=== PATIENT | female | born 1965 | race African-American/Black ===

== ENCOUNTER 2017-05-15 20:35 | Emergency (ER) | payer MEDICAID ==
[~2017-05-15] VITALS: Ht 157.5 cm; Wt 68.0 kg
[2017-05-15 20:35] VITALS: BP 159/71
[~2017-05-15 20:35] MED LIST: ASPI81CH43 PO; Atorvastatin Calcium PO; CLOP75TA28 PO; INSLANTI SC; ISOS10TA14 PO; LIS10T PO; NICO14DI9 TD; NITR0.4S29 SL
== END 2017-05-15 21:45 | disposition left against medical advice (07) ==
LOC: EDBD 20:35 → ER 20:42
DX: R09.89 Other specified symptoms and signs involving the circulatory and respiratory systems (principal); Z53.21 Procedure and treatment not carried out due to patient leaving prior to being seen by health care provider

== ENCOUNTER 2018-06-11 11:38 | Inpatient (IN) | payer MEDICAID ==
[~2018-06-11] VITALS: Ht 157.5 cm; Wt 70.5 kg
[2018-06-11] MEDS ORDERED: SODIUM CHLORIDE 0.9% 1,000 ML IV ONE (11:56)
[2018-06-11] MEDS ORDERED: MORPHINE SULFATE 4 MG/ML SYR/VIAL IV ONE (12:30)
[2018-06-11] MEDS ORDERED: ONDANSETRON HCL 4 MG/2 ML VIAL IV ONE (12:30)
[2018-06-11 13:05] LABS: Basophils # (auto) 0.1 uL; Basophils % (auto) 0.8 % (0.0-2.0); Eosinophils # (auto) 0 uL; Eosinophils % (auto) 0.2 % (0.0-7.0); Hematocrit 45.1 % (36.0-46.0); Hemoglobin 15.2 g/dL (12.2-16.2); Lymphocytes # (auto) 1.6 uL; Lymphocytes % (auto) 14.2 % (10.0-50.0); Mean Corpuscular Hemoglobin 28.7 pg (28.0-32.0); Mean Corpuscular Hgb Conc. 33.6 g/dL (32.0-36.0); Mean Corpuscular Volume 85.5 fL (80.0-100.0); Monocytes # (auto) 0.6 uL; Monocytes % (auto) 5.3 % (0.0-12.0); Neutrophils # (auto) 8.9 uL; Neutrophils % (auto) 79.5 % (37.0-80.0); Nucleated Red Blood Cells % 0.1 %; Platelet Count (auto) 406 10^3/uL (140-450); Red Blood Cells 5.28 10^6/uL (4.0-5.20); Red Cell Distribution Width 13.6 % (11.8-14.3); White Blood Cell 11.2 10^3/uL (4.4-10.8)
[2018-06-11 13:20] LABS: INR 0.89 (0.9-1.15); Partial Thromboplastin Time 25.1 sec (23.78-33.04); Prothrombin Time 9.6 sec (9.27-12.13)
[2018-06-11 13:26] LABS: Albumin 3.8 g/dL (3.4-5.0); BUN/Creatinine Ratio 6.4; Calcium 9.4 mg/dL (8.5-10.1); Magnesium 2.3 mg/dL (1.6-2.6)
[2018-06-11 13:42] LABS: Potassium 2.9 mmol/L (3.5-5.1)
[2018-06-11 13:48] LABS: Bilirubin, Total 0.4 mg/dL (0.2-1.0); Total Protein 8.5 g/dL (6.4-8.2)
[2018-06-11] MEDS ORDERED: POTASSIUM CHL 20MEQ/100ML 100 ML IV ONE (14:00)
[2018-06-11] MEDS ORDERED: METOPROLOL SUCCINATE XL 50 MG TAB PO ONE (14:45)
[2018-06-11] MEDS ORDERED: MORPHINE SULF INJ 2 MG/ML SYRINGE 1ML IV PRN (15:00)
[2018-06-11] MEDS ORDERED: LORazepam 0.5 MG TAB PO PRN (15:00)
[2018-06-11] MEDS ORDERED: NITROGLYCERIN 0.4 MG SL TAB SL PRN (15:00)
[2018-06-11] MEDS ORDERED: TEMAZEPAM 15 MG CAP PO PRN (15:00)
[2018-06-11] MEDS ORDERED: MORPHINE SULFATE 4 MG/ML SYR/VIAL IV PRN (15:00)
[2018-06-11] MEDS ORDERED: DEXTROSE (50%) 50ML SYRG IV PRN (15:00)
[2018-06-11] MEDS ORDERED: ACETAMINOPHEN 500 MG TAB PO PRN (15:00)
[2018-06-11] MEDS: SOD CHL 0.9%/ KCL 40MEQ 1,000 ML IV SCH (15:28)
[2018-06-11] MEDS ORDERED: ENOXAPARIN SOD 100 MG/1 ML SYRINGE SC ONE (17:05)
[2018-06-11] MEDS ORDERED: ENOXAPARIN SOD 80 MG/0.8ML SYRINGE SC ONE (17:15)
[2018-06-11] MEDS ORDERED: CLOPIDOGREL BISULFATE 75 MG TAB PO ONE (17:15)
[2018-06-11] MEDS: InsuLIN REG 1unit/0.01ml Soln (100units/ml) SC SCH ×2 (17:24→22:36)
[2018-06-11] MEDS: ACCU-CHEK COMFORT CURVE STRIP VI SCH ×2 (17:25→22:35)
[2018-06-11 18:10] VITALS: BP 104/76
--- NOTE | 2018-06-11 19:45 | NUR ---
Opening Shift Note Assumed care of patient, lying on bed in high [place], eating independently slowly, alternating with sleeping due to Morphine from ER. Breathing even and nonlabored, on RA breathing, No S/S of distress/SOB. C/O chest pain 08/07, refused morphine for now, wanted to try eating more. 20G on right FA infusing IV at 75ml/hr. 20G saline lock at left FA, flushed well, CDI site. Due to void. Bed in low position, call light within reach, all alarms are audible, fall and safety precaution in place. Instructed on POC and to call for assist PRN, will continue to monitor for changes Q1hr and PRN.
[2018-06-11] MEDS: PROMETHAZINE HCL 25 MG/ML 1ML IV PRN (19:53)
[2018-06-11 20:00] VITALS: BP 116/67
--- NOTE | 2018-06-11 21:12 | NUR ---
Family at bedside. Pt's DTR, significant other and friend. All questions and concerns answered, instruct POC and acknowledged by the family.
[2018-06-11] MEDS: ENOXAPARIN SOD 80 MG/0.8ML SYRINGE SC SCH ×2 (22:00→22:35)
--- NOTE | 2018-06-11 22:45 | NUR ---
Pharmacy/ Lovenox Called and consulted with Pharmacist chip person regarding Lovenox and Plavix already given, Pt has a LHC plan tomorrow and Lovonox schedule at 10pm. Pharmacist will put in note to re-time Lovenox.
--- NOTE | 2018-06-11 22:50 | NUR ---
Stomach upset Pt moaning and c/o stomach upset. [facility] Hospitalist. Addendum: 06/11/18 at 2312 by Joanne Spears RN 22.58pm Tra EDUCATION COORDINATOR called back. Pt's condition and plan notified, including increased Trop at 44.5 and [facility] plan tomorrow. New order received, see ABIDAR.
[2018-06-11] MEDS ORDERED: PANTOPRAZOLE 40 MG/10 ML VIAL IV ONE (23:00)
[2018-06-12] VITALS (8 sets, daily range): BP systolic 97–128; BP diastolic 67–75
--- NOTE | 2018-06-12 01:00 | NUR ---
Condition update Pt's condition stable, sleeping on bed, no pain or moaning. Continue care.
[2018-06-12] MEDS: SOD CHL 0.9%/ KCL 40MEQ 1,000 ML IV SCH ×2 (01:28→04:19)
--- NOTE | 2018-06-12 04:11 | NUR ---
Family called to ask for Pt's condition. Pt's condition and v/s stable, sleeping well, no chest pain. Family updated. Continue care.
--- NOTE | 2018-06-12 04:20 | NUR ---
RENEG 12 leads obtained. Addendum: 06/12/18 at 0732 by Joanne Spears RN for f/u per ordered.
--- NOTE | 2018-06-12 04:45 | NUR ---
Elimination/ OOB Pt walked to the restroom for urination with minimal assist with wires, stable gait. Pt passed urine, collected for UA and wiped clean by self. Pt walked back with no incident.
--- NOTE | 2018-06-12 05:00 | NUR ---
Patient bathe/linen change Patient given complete bath with CHG wipes. Skin integrity assessed for any changes, no open skin, z-guard applied to sommer area and both lower legs. Complete linens changed. Patient repositioned for comfort.
[2018-06-12 06:03] LABS: Basophils # (auto) 0 uL; Basophils % (auto) 0.7 % (0.0-2.0); Eosinophils # (auto) 0.1 uL; Eosinophils % (auto) 1.4 % (0.0-7.0); Hematocrit 38.3 % (36.0-46.0); Hemoglobin 13.2 g/dL (12.2-16.2); Lymphocytes # (auto) 2.4 uL; Lymphocytes % (auto) 40.7 % (10.0-50.0); Mean Corpuscular Hemoglobin 29.6 pg (28.0-32.0); Mean Corpuscular Hgb Conc. 34.5 g/dL (32.0-36.0); Mean Corpuscular Volume 85.7 fL (80.0-100.0); Monocytes # (auto) 0.5 uL; Monocytes % (auto) 8.3 % (0.0-12.0); Neutrophils # (auto) 2.9 uL; Neutrophils % (auto) 48.9 % (37.0-80.0); Nucleated Red Blood Cells % 0.1 %; Platelet Count (auto) 367 10^3/uL (140-450); Red Blood Cells 4.47 10^6/uL (4.0-5.20); Red Cell Distribution Width 13.4 % (11.8-14.3); White Blood Cell 5.9 10^3/uL (4.4-10.8)
[2018-06-12 06:22] LABS: Albumin 2.9 g/dL (3.4-5.0); Calcium 8.5 mg/dL (8.5-10.1); Potassium 3.7 mmol/L (3.5-5.1)
[2018-06-12 06:24] LABS: BUN/Creatinine Ratio 14.3
[2018-06-12 06:26] LABS: Bilirubin, Total 0.3 mg/dL (0.2-1.0); Total Protein 6.7 g/dL (6.4-8.2)
[2018-06-12 06:27] LABS: Alcohol, Urine < 3.0 mg/dL (0-5); Amphetamine Screen, Urine NEGATIVE (NEGATIVE); Barbiturate Scree,Urine NEGATIVE (NEGATIVE); Phencyclidine Screen, Urine NEGATIVE (NEGATIVE)
[2018-06-12] MEDS: InsuLIN REG 1unit/0.01ml Soln (100units/ml) SC SCH ×4 (07:00→21:54)
[2018-06-12 07:23] LABS: Benzodiazephine Screen, Urine NEGATIVE (NEGATIVE); Cannabinoid Screen, Urine NEGATIVE (NEGATIVE); Cocaine Screen, Urine NEGATIVE (NEGATIVE); Opiate Scree,Urine POSITIVE (NEGATIVE)
[2018-06-12] MEDS: ACCU-CHEK COMFORT CURVE STRIP VI SCH ×4 (07:30→21:54)
[2018-06-12] MEDS: traMADol HCL 50 MG TAB PO PRN (07:57)
[2018-06-12] MEDS: ENOXAPARIN SOD 80 MG/0.8ML SYRINGE SC SCH ×2 (09:00→16:28)
--- NOTE | 2018-06-12 09:11 | NUR ---
PATIENT TAKEN TO VIAL GAUGER FOR LEFT HEART CATH.
--- NOTE | 2018-06-12 09:30 | NUR ---
Pt off the floor in Corrections Officer. Will reassess when pt available.
[2018-06-12] MEDS ORDERED: IOHEXOL 350 MG/ML 100ML IJ ONE (09:40)
[2018-06-12] MEDS ORDERED: LIDOCAINE 2%HCL (LOCAL ANESTH.) INJ 20ML MDV ONE ×2 (09:40→12:03)
[2018-06-12] MEDS: ASPirin 81 mg TAB PO SCH (10:00)
[2018-06-12] MEDS ORDERED: NITROGLYCERIN 0.2MG/HR TOPICAL PATCH TD ONE (10:00)
[2018-06-12] MEDS ORDERED: CLOPIDOGREL BISULFATE 75 MG TAB PO ONE (10:00)
[2018-06-12] MEDS ORDERED: METOPROLOL SUCCINATE XL 50 MG TAB PO ONE (10:00)
[2018-06-12] MEDS: PANTOPRAZOLE 40 MG TAB PO SCH (10:00)
[2018-06-12] MEDS: NITROGLYCERIN 0.2MG/HR TOPICAL PATCH TD SCH (10:00)
[2018-06-12] MEDS ORDERED: ANGIOMAX 250 MG VIAL IV ONE ×3 (10:08→14:00)
[2018-06-12] MEDS ORDERED: fentaNYL CITRATE 100 MCG/2 ML VL ONE ×2 (10:08→13:00)
[2018-06-12] MEDS ORDERED: MIDAZOLAM HCL 1MG/1ML-2 ML VIAL ONE ×3 (10:09→14:26)
[2018-06-12] MEDS ORDERED: SODIUM CHL 0.9% 0 ML ONE (10:09)
[2018-06-12] MEDS ORDERED: IODIXANOL 320MG/ML 100ML BTL IV ONE ×3 (12:03→14:32)
[2018-06-12] MEDS ORDERED: diphenhdrAMINE HCL 50 MG/1 ML VL ONE (13:00)
[2018-06-12] MEDS ORDERED: SODIUM CHL 0.9% 50 ML ONE ×2 (13:01→14:01)
[2018-06-12] MEDS ORDERED: EPINEPHrine HCL 1 MG/10 ML SYRG ONE (13:21)
[2018-06-12] MEDS ORDERED: NITROGLYCERIN 5MG/ML 10ML VIAL IV ONE (13:21)
[2018-06-12] MEDS ORDERED: ATROPINE SULFATE 1 MG/1 ML VIAL ONE (13:21)
[2018-06-12] MEDS ORDERED: CLOPIDOGREL 300 MG TAB ONE (13:22)
[2018-06-12] MEDS ORDERED: METOPROLOL TARTRATE 1MG/1ML-5ML VIAL IV ONE (14:07)
[2018-06-12] MEDS ORDERED: cloNIDine HCL 0.1 MG TAB ONE (14:41)
[2018-06-12] MEDS ORDERED: ASPirin 325 MG TAB ONE (14:44)
[2018-06-12] MEDS ORDERED: SODIUM CHLORIDE 0.9% 1,000 ML IV SCH (14:56)
[2018-06-12] MEDS ORDERED: hydrALAZINE HCL 20 MG/ML VL ONE (15:06)
--- NOTE | 2018-06-12 15:27 | NUR ---
intraop meds correction in [facility]: Hydralazine IV- 5mg IVP administered for elevated blood pressure at 165/103.
--- NOTE | 2018-06-12 16:20 | NUR ---
PATIENT RETURNED FROM [facility], WITH FEM STOP IN PLACE TO RIGHT GROIN.
--- NOTE | 2018-06-12 16:29 | NUR ---
FEMSTOP MANAGEMENT; REPORT GIVEN TO RN REGARDING MANAGEMENT OF FEMSTOP, PULSES ARE WEAK TO LEFT DP, DOPPLER PERFORMED TO DP TO CONFIRM + PULSES. FEMSTOP AT 133mmHg, PATIENT BP IS 130 SYSTOLIC, PATIENT COMFORTABLE AT THIS TIME. PATIENT MADE AWARE TO KEEP LEFT LEG STRAIGHT. NURSE MADE AWARE CAN CALL BACK THIS RN IF ANY QUESTIONS, CARE ENDORSED.
[2018-06-12] MEDS: HYDROcodone-ACET 10/325MG TAB PO PRN (16:51)
[2018-06-12] MEDS ORDERED: MORPHINE SULF INJ 2 MG/ML SYRINGE 1ML IV PRN (17:30)
--- NOTE | 2018-06-12 17:40 | NUR ---
FemStop D/C; FemStop was removed, dressing changed, no bleeding, no hematoma noted, Left DP pulse present +2. Patient denies any pain. Patient advised to remain flat for another 2 hours. Patient repeated back instructions. [facility] RN given report.
[2018-06-12] MEDS: PROMETHAZINE HCL 25 MG/ML 1ML IV PRN (21:54)
[2018-06-13 00:12] VITALS: BP 127/83
[2018-06-13] MEDS: SOD CHL 0.9%/ KCL 40MEQ 1,000 ML IV SCH ×2 (00:20→14:19)
[2018-06-13] MEDS: HYDROcodone-ACET 10/325MG TAB PO PRN ×2 (04:18→10:38)
[2018-06-13 04:25] VITALS: BP 152/91
[2018-06-13] MEDS ORDERED: GABA-339 PO (04:33)
[2018-06-13 05:41] LABS: Basophils # (auto) 0 uL; Basophils % (auto) 0.5 % (0.0-2.0); Eosinophils # (auto) 0.1 uL; Eosinophils % (auto) 0.8 % (0.0-7.0); Hematocrit 36.6 % (36.0-46.0); Hemoglobin 12.2 g/dL (12.2-16.2); Lymphocytes # (auto) 1.2 uL; Lymphocytes % (auto) 18.8 % (10.0-50.0); Mean Corpuscular Hemoglobin 28.9 pg (28.0-32.0); Mean Corpuscular Hgb Conc. 33.2 g/dL (32.0-36.0); Monocytes # (auto) 0.6 uL; Neutrophils # (auto) 4.6 uL; Neutrophils % (auto) 70.9 % (37.0-80.0); Nucleated Red Blood Cells % 0.1 %; Platelet Count (auto) 326 10^3/uL (140-450); Red Blood Cells 4.21 10^6/uL (4.0-5.20); Red Cell Distribution Width 13.2 % (11.8-14.3); White Blood Cell 6.6 10^3/uL (4.4-10.8)
[2018-06-13 05:50] LABS: Potassium 3.6 mmol/L (3.5-5.1)
[2018-06-13 05:59] LABS: Calcium 8.6 mg/dL (8.5-10.1)
--- NOTE | 2018-06-13 06:18 | NUR ---
Pt has remained stable throughout shift. Stated heartburn when eating dinner at beginning of shift, Phenergan given and heartburn was relieved and pt was able to rest. Family left at approx midnight. Pt also has had periods of confusion but is easily reoriented. Seems weak so BSC offered instead of ambulating to restroom. Pain stated around 4am, [place] given but pt states she takes Gabapentin for pain in her feet. Medication added to med rec. Will continue to monitor.
--- NOTE | 2018-06-13 06:35 | NUR ---
Gabapentin 600mg PO one time ordered, AM shift hospitalist to reconcile med rec. Pt stable at this time.
[2018-06-13] MEDS ORDERED: GABAPENTIN 300 MG CAP PO ONE (06:45)
[2018-06-13] MEDS: ACCU-CHEK COMFORT CURVE STRIP VI SCH ×4 (07:00→21:58)
[2018-06-13] MEDS: InsuLIN REG 1unit/0.01ml Soln (100units/ml) SC SCH ×4 (07:32→22:00)
[2018-06-13 07:45] VITALS: BP 162/90
[2018-06-13] MEDS: ASPirin 81 mg TAB PO SCH (10:39)
[2018-06-13] MEDS: CLOPIDOGREL BISULFATE 75 MG TAB PO SCH (10:39)
[2018-06-13] MEDS: NITROGLYCERIN 0.2MG/HR TOPICAL PATCH TD SCH (10:39)
[2018-06-13] MEDS: PANTOPRAZOLE 40 MG TAB PO SCH (10:40)
[2018-06-13 12:00] VITALS: BP 103/54
--- NOTE | 2018-06-13 12:10 | NUR ---
DR. PALOMARES HERE TO SEE PATIENT. SEE MD NOTES AND EMR FOR ANY NEW ORDERS.
[2018-06-13] MEDS ORDERED: CARVEDILOL 3.125 MG TAB PO ONE (12:15)
[2018-06-13] MEDS ORDERED: LISINOPRIL 10 MG TAB PO ONE (12:45)
[2018-06-13] MEDS: PROMETHAZINE HCL 25 MG/ML 1ML IV PRN ×2 (15:57→20:40)
--- NOTE | 2018-06-13 19:30 | NUR ---
RECEIVED PT FROM DAY RN POC REVIEWED
[2018-06-13 19:45] VITALS: BP 135/85
--- NOTE | 2018-06-13 21:00 | NUR ---
pts family at bedside
[2018-06-13] MEDS: CARVEDILOL 3.125 MG TAB PO SCH (21:26)
[2018-06-13] MEDS: GABAPENTIN 300 MG CAP PO SCH (21:26)
--- NOTE | 2018-06-13 22:39 | NUR ---
pts family asked to leave so pt can rest
[2018-06-14] VITALS (7 sets, daily range): BP systolic 82–127; BP diastolic 49–91
--- NOTE | 2018-06-14 01:55 | NUR ---
resting with eyes closed resp even and unlabored, call light within reach, bed alarm intact, no c/o discomfort
--- NOTE | 2018-06-14 05:35 | NUR ---
awoke am care given partial bath and linen change
[2018-06-14 05:47] LABS: Basophils # (auto) 0 uL; Basophils % (auto) 0.4 % (0.0-2.0); Eosinophils # (auto) 0.1 uL; Eosinophils % (auto) 1.3 % (0.0-7.0); Hematocrit 33.2 % (36.0-46.0); Hemoglobin 11.1 g/dL (12.2-16.2); Lymphocytes # (auto) 1.5 uL; Lymphocytes % (auto) 26.9 % (10.0-50.0); Mean Corpuscular Hemoglobin 29.1 pg (28.0-32.0); Mean Corpuscular Hgb Conc. 33.5 g/dL (32.0-36.0); Mean Corpuscular Volume 86.7 fL (80.0-100.0); Monocytes # (auto) 0.5 uL; Monocytes % (auto) 9.9 % (0.0-12.0); Neutrophils # (auto) 3.4 uL; Neutrophils % (auto) 61.5 % (37.0-80.0); Platelet Count (auto) 307 10^3/uL (140-450); Red Blood Cells 3.83 10^6/uL (4.0-5.20); Red Cell Distribution Width 13.1 % (11.8-14.3); White Blood Cell 5.5 10^3/uL (4.4-10.8)
[2018-06-14] MEDS: GABAPENTIN 300 MG CAP PO SCH ×4 (06:00→21:46)
[2018-06-14 06:04] LABS: BUN/Creatinine Ratio 7.1; Potassium 3.5 mmol/L (3.5-5.1)
[2018-06-14] MEDS: ACCU-CHEK COMFORT CURVE STRIP VI SCH ×4 (06:50→21:51)
[2018-06-14] MEDS: InsuLIN REG 1unit/0.01ml Soln (100units/ml) SC SCH ×4 (06:52→21:54)
--- NOTE | 2018-06-14 07:23 | NUR ---
pt has neurontin at bedside in her purse, i discussed with pt that its the hospital policy to send all meds to pharmaacy for safe keeping, pt refused to give meds report given to am nurse,
--- NOTE | 2018-06-14 07:30 | NUR ---
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 PATIENT DENIES TAKING ANY FROM THE BOTTLE HERSELF AND REQUESTING NEURONTIN THAT WAS DUE AT 0600 THAT HOME CARE PHYSICAL THERAPIST RN HELD PER REPORT. NEURONTIN GIVEN AT THIS TIME ORDERED FOR 0600 TIME. ADDRESSED WITH PATIENT THE SAFETY CONCERN AND PATIENT VERBALIZED UNDERSTANDING AND IS COOPERATIVE.
[2018-06-14] MEDS: traMADol HCL 50 MG TAB PO PRN ×3 (08:34→20:20)
[2018-06-14] MEDS: ASPirin 81 mg TAB PO SCH (10:08)
[2018-06-14] MEDS: CLOPIDOGREL BISULFATE 75 MG TAB PO SCH (10:08)
[2018-06-14] MEDS: HYDROcodone-ACET 10/325MG TAB PO PRN ×3 (10:09→23:37)
[2018-06-14] MEDS: CARVEDILOL 3.125 MG TAB PO SCH ×2 (10:09→22:00)
[2018-06-14] MEDS: PANTOPRAZOLE 40 MG TAB PO SCH (10:09)
[2018-06-14] MEDS: LISINOPRIL 10 MG TAB PO SCH (10:10)
[2018-06-14] MEDS: NITROGLYCERIN 0.2MG/HR TOPICAL PATCH TD SCH (10:11)
--- NOTE | 2018-06-14 12:10 | NUR ---
PATIENT RECEIVED FROM [facility] REPORT RECEIVED FROM NURSE, PATIENT ALERT AND ORIENTED X4, DROWSY ON ROOM AIR, ARRIVED IN BED WITH ALL BELONGINGS, IV FLUIDS RUNNING AT 75ML/H, TELE #25 READING SINUS RHYTHM 91 UPON ARRIVAL. NOTIFIED TO CALL FOR ASSISTANCE/PRN. BED IN LOW AND LOCKED POSITION, RAILS UP X2, NO-SLIP SOCKS ON. UPDATED ON PLAN OF CARE. WILL CONTINUE TO MONITOR.
--- NOTE | 2018-06-14 16:40 | NUR ---
DR MARCELO AT BEDSIDE ORDERS ADDED FOR PT
[2018-06-14] MEDS: SOD CHL 0.9%/ KCL 40MEQ 1,000 ML IV SCH ×2 (16:43→23:00)
--- NOTE | 2018-06-14 19:09 | NUR ---
SHIFT CHANGE ENDORSED CARE TO NOC NURSE
--- NOTE | 2018-06-14 19:15 | NUR ---
Opening Shift Note Assumed care of patient, awake and alert. No S/S of distress/SOB Pt reports pain 09/07, pt stated throughout day she was getting chest pain on and off she stated that she let [facility] nurse, they had explained due to her procedure she had will feel discomfort, l.Daughter at bedside. Let pt and daughter know will do 12 lead EKG just to see if any changes from previous and obtain vitals. Informed upon review of notes patient had own meds when in [facility], Pt stated daughter took meds with her. Instructed on POC and to callfor assist PRN, will continue to monitor for changes Q1hr and PRN. Bed locked and in lowest position, call light within reach HOB elevated, will continue to monitor pt.
[2018-06-15] MEDS: SOD CHL 0.9%/ KCL 40MEQ 1,000 ML IV SCH (04:37)
[2018-06-15 05:58] VITALS: BP 93/56
[2018-06-15] MEDS: ACCU-CHEK COMFORT CURVE STRIP VI SCH ×3 (06:23→17:00)
[2018-06-15] MEDS: GABAPENTIN 300 MG CAP PO SCH ×2 (06:23→12:45)
[2018-06-15] MEDS: InsuLIN REG 1unit/0.01ml Soln (100units/ml) SC SCH ×3 (06:23→17:00)
--- NOTE | 2018-06-15 06:46 | NUR ---
FAMILY MEMBER CALL Estuardo called pt currently asleep.
--- NOTE | 2018-06-15 07:40 | NUR ---
OPENING SHIFT PATIENT ASLEEP IN BED. NO S/S OF DISTRESS, SOB, OR PAIN. RESPIRATIONS EVEN AND UNLABORED. BED IS IN LOWEST POSITION, SIDE RAILS UP X2, CAN CALL LIGHT WITHIN REACH. WILL CONTINUE TO MONITOR Q1 HOUR AND PRN.
[2018-06-15 09:39] VITALS: BP 108/68
[2018-06-15] MEDS: LISINOPRIL 10 MG TAB PO SCH (09:49)
[2018-06-15] MEDS: ASPirin 81 mg TAB PO SCH (09:49)
[2018-06-15] MEDS: CLOPIDOGREL BISULFATE 75 MG TAB PO SCH (09:49)
[2018-06-15] MEDS: PANTOPRAZOLE 40 MG TAB PO SCH (09:50)
[2018-06-15] MEDS: CARVEDILOL 3.125 MG TAB PO SCH (09:50)
--- NOTE | 2018-06-15 09:53 | NUR ---
PATIENT AWAKE AND ALERT BP ASSESSED 108/68 mmHG PATIENT C/O OF PAIN 7/10 IN BILATERAL GROIN INCISIONS WILL MEDICATE PER [facility]/ M.D. ORDERS NO S/S OF BLEEDING OR HEMATOMA. TISSUES SOFT AROUND INCISIONS BILATERALLY. DRESSINGS ARE CLEAN, DRY AND INTACT
[2018-06-15] MEDS: HYDROcodone-ACET 10/325MG TAB PO PRN (09:57)
--- NOTE | 2018-06-15 11:33 | NUR ---
Nutrition Assessment Notes please see attached link for complete assessment Est. Needs BW [id number] kcal (23-25 kcal/kgBW), 70-77 gms pro (1.0-1.1 gms/kgBW). Will continue to monitor pertinent labs and reassess nutrient need prn Addendum: 06/15/18 at [address] Amended: Links added.
--- NOTE | 2018-06-15 15:30 | NUR ---
DAUGHTER AT BEDSIDE DISCUSSED POC WITH PATIENT AND FAMILY. PATIENT AND FAMILY VERBALIZED UNDERSTANDING.
[2018-06-15 17:06] VITALS: BP 96/63
--- NOTE | 2018-06-15 17:49 | NUR ---
DISCHARGE Discharge instructions given as ordered. Encourage to follow up with PCP within one week. Patient instructed to make an appointment. No appointment could be made because PCP is out of area. Encouraged to follow up with Dr. Turner in one week. Patient instructed to call and make an appointment with Dr. Turner's office tomorrow a.m. Appointment could not be made today because office is already closed. Education provided on new prescribed medications. Instructed not to take the same medication twice, if medication prescribed is also a medication at home, instructed to follow new prescription instructions. Patient discharged during time for a blood glucose check. Daughter said she would check patient's blood sugar at home. Instructed to do that as soon as possible. All questions and concerns addressed. Patient and daughter verbalized understanding. IV removed with catheter intact, pressure dressing applied. Telemetry unit returned to [facility]. Patient taken to vehicle via wheelchair with all personal belongings, accompanied by staff and family member. No distress noted at time of departure.
== END 2018-06-15 18:00 | disposition home or self-care (01) | DRG 174 ==
LOC: ER 11:38 → EDBD 11:38 → TELE 14:59 → DOU IN ICU 18:00 → CENTRAL 06-14 12:11 → TELE-CENTR 06-14 12:38
PROVIDERS: ADMIT Internal Medicine; ATTEND Internal Medicine
PROC: 027035Z Dilation of Coronary Artery, One Artery with Two Drug-eluting Intraluminal Devices, Percutaneous Approach (ICD-10-PCS; principal; 2018-06-12)
PROC: B2111ZZ Fluoroscopy of Multiple Coronary Arteries using Low Osmolar Contrast (ICD-10-PCS; 2018-06-12)
PROC: 4A023N7 Measurement of Cardiac Sampling and Pressure, Left Heart, Percutaneous Approach (ICD-10-PCS; 2018-06-12)
PROC: B2151ZZ Fluoroscopy of Left Heart using Low Osmolar Contrast (ICD-10-PCS; 2018-06-12)
DX: I21.4 Non-ST elevation (NSTEMI) myocardial infarction (principal); E11.65 Type 2 diabetes mellitus with hyperglycemia; E87.1 Hypo-osmolality and hyponatremia; E88.09 Other disorders of plasma-protein metabolism, not elsewhere classified; I10 Essential (primary) hypertension; E87.6 Hypokalemia; I25.10 Atherosclerotic heart disease of native coronary artery without angina pectoris; F17.210 Nicotine dependence, cigarettes, uncomplicated; I25.2 Old myocardial infarction; Z79.4 Long term (current) use of insulin; Z98.51 Tubal ligation status; Z95.5 Presence of coronary angioplasty implant and graft
CPT/HCPCS: 36415; 71045; 80048; 80053; 80061; 80307; 82550; 82962; 83036; 83735; 83880; 84484; 85025; 85379; 85610; 85652; 85730; 86141; 87081; 92928; 93005; 93458; 96361; 96365; 97163; A4565; A6257; C1874; C1887; C9113; G0378; J0461; J1815; J2250; J2405; J3480; J3490; Q9967

== ENCOUNTER 2018-07-09 19:10 | Emergency (ER) | payer MEDICAID ==
[~2018-07-09] VITALS: Ht 162.6 cm; Wt 65.8 kg
[~2018-07-09 19:10] MED LIST changes: +GABA-339 PO; -LIS10T PO; -NICO14DI9 TD
[2018-07-09] MEDS ORDERED: SODIUM CHLORIDE 0.9% 500 ML IV ONE (19:31)
[2018-07-09 20:45] LABS: Basophils # (auto) 0 uL; Basophils % (auto) 0.5 % (0.0-2.0); Eosinophils # (auto) 0.1 uL; Hematocrit 28.1 % (36.0-46.0); Hemoglobin 9.3 g/dL (12.2-16.2); Lymphocytes # (auto) 2.1 uL; Lymphocytes % (auto) 31.4 % (10.0-50.0); Mean Corpuscular Hemoglobin 28.5 pg (28.0-32.0); Mean Corpuscular Hgb Conc. 33.1 g/dL (32.0-36.0); Mean Corpuscular Volume 86.1 fL (80.0-100.0); Monocytes # (auto) 0.4 uL; Neutrophils # (auto) 4.1 uL; Neutrophils % (auto) 61.1 % (37.0-80.0); Platelet Count (auto) 403 10^3/uL (140-450); Red Blood Cells 3.27 10^6/uL (4.0-5.20); Red Cell Distribution Width 12.7 % (11.8-14.3); White Blood Cell 6.7 10^3/uL (4.4-10.8)
[2018-07-09 21:09] LABS: Albumin 3.2 g/dL (3.4-5.0); Anion Gap 6 (5-15); Blood Urea Nitrogen 16 mg/dL (7-18); Calcium 8.5 mg/dL (8.5-10.1); Carbon Dioxide 30 mmol/L (21-32); Chloride 99 mmol/L (98-107); Glucose 86 mg/dL (74-106); Magnesium 2.6 mg/dL (1.6-2.6); Potassium 3.7 mmol/L (3.5-5.1); Sodium 135 mmol/L (136-145)
[2018-07-09 21:14] LABS: Alanine Aminotransferase 11 U/L (13-56); Alkaline Phosphatase 88 U/L (45-117); Aspartate Aminotransferase 7 U/L (15-37); BUN/Creatinine Ratio 13.6; Bilirubin, Total 0.2 mg/dL (0.2-1.0); GFR African American 62 mL/min; GFR Non-African American 51 mL/min
[2018-07-09] MEDS ORDERED: TEMAZEPAM 15 MG CAP PO PRN (22:15)
[2018-07-09] MEDS ORDERED: HYDROcodone-ACET 5/325MG TAB PO PRN (22:15)
[2018-07-09] MEDS ORDERED: DEXTROSE (50%) 50ML SYRG IV PRN (22:15)
[2018-07-09] MEDS ORDERED: ATORVASTATIN 20 MG TAB PO ONE (22:15)
[2018-07-09] MEDS ORDERED: ASPirin 81 mg TAB PO ONE (22:15)
[2018-07-09] MEDS ORDERED: NITROGLYCERIN 0.4 MG SL TAB SL PRN (22:15)
[2018-07-09] MEDS ORDERED: ONDANSETRON HCL 4 MG/2 ML VIAL IV PRN (22:15)
[2018-07-09] MEDS ORDERED: ACETAMINOPHEN 325 MG TAB PO PRN (22:15)
[2018-07-09] MEDS ORDERED: MORPHINE SULF INJ 2 MG/ML SYRINGE 1ML IV PRN (22:15)
[2018-07-09 23:13] VITALS: BP 107/66
[2018-07-10] MEDS ORDERED: InsuLIN REG 1unit/0.01ml Soln (100units/ml) SC SCH
[2018-07-10] MEDS ORDERED: ACCU-CHEK COMFORT CURVE STRIP VI SCH
[2018-07-10] MEDS ORDERED: GABAPENTIN 300 MG CAP PO SCH (06:00)
[2018-07-10] MEDS ORDERED: CLOPIDOGREL BISULFATE 75 MG TAB PO SCH (10:00)
[2018-07-10] MEDS ORDERED: FAMOTIDINE 20 MG TAB PO SCH (10:00)
[2018-07-10] MEDS ORDERED: ASPirin 81 mg TAB PO SCH (10:00)
[2018-07-10] MEDS ORDERED: ATORVASTATIN 20 MG TAB PO SCH (22:00)
== END 2018-07-09 23:31 | disposition home or self-care (01) ==
LOC: EDBD 19:10 → EDUNIT# 19:10 → ER 19:22
DX: R07.9 Chest pain, unspecified (principal); I95.9 Hypotension, unspecified; D50.9 Iron deficiency anemia, unspecified; E11.9 Type 2 diabetes mellitus without complications; E78.5 Hyperlipidemia, unspecified; F17.210 Nicotine dependence, cigarettes, uncomplicated; I25.2 Old myocardial infarction; R06.02 Shortness of breath; Z98.61 Coronary angioplasty status; Z98.51 Tubal ligation status; Z79.82 Long term (current) use of aspirin; Z79.4 Long term (current) use of insulin; Z79.899 Other long term (current) drug therapy
CPT/HCPCS: 36415; 71045; 80053; 82962; 83735; 83880; 84484; 85025

== ENCOUNTER 2018-08-05 22:32 | Inpatient (IN) | payer MEDICAID | END 2018-08-07 18:16 | disposition still patient (30) | LOC: TELE 08-06 04:48 → ICU WEST 08-06 17:56 → ER 22:32 | DX: I95.9 Hypotension, unspecified (principal); E11.649 Type 2 diabetes mellitus with hypoglycemia without coma; E87.6 Hypokalemia ==